=== PATIENT | female | born 1965 | race Caucasian/White ===

== ENCOUNTER → 2016-08-24 | Outpatient (CLI) | payer BC ==
[~2016-08-24] MED LIST: ACET-1256 PO; AMT25 PO; HYG/25 PO; LSN40; SUMA6KIT3 SQ
== END | disposition home or self-care (01) ==
LOC: C.LABSPEC 15:45
PROVIDERS: ATTEND Podiatrist Primary Podiatric Medicine
DX: B35.1 Tinea unguium (principal)

== ENCOUNTER 2020-12-12 16:07 | Observation (INO) ==
[2020-12-12 16:32] LABS: Basophils # (auto) 0.03 K/uL (0-0.2); Basophils % (auto) 0.5 %; Eosinophils # (auto) 0.14 K/uL (0-0.5); Eosinophils % (auto) 2.1 %; Hematocrit (blood only) 42.2 % (37-47); Hemoglobin 14.6 g/dL (12.0-16.0); Immature Granulocytes # (auto) 0.02 K/uL (0.00-0.02); Immature Granulocytes % (auto) 0.3 %; Lymphocytes % (auto) 37.8 %; Mean Corpuscular Hemoglobin 31.2 pg (25-34); Mean Corpuscular Hgb Conc 34.6 g/dL (32-36); Mean Corpuscular Volume 90.2 fL (80-100); Mean Platelet Volume 8.9 fL (7.4-10.4); Monocytes # (auto) 0.49 K/uL (0.11-0.59); Monocytes % (auto) 7.4 %; Neutrophils # (auto) 3.43 K/uL (1.4-6.5); Neutrophils % (auto) 51.9 %; Platelet Count 325 K/uL (130-400); RDW Coefficient of Variation 14.2 % (11.5-14.5); Red Blood Count 4.68 M/uL (4.2-5.4); White Blood Count 6.61 K/uL (4.8-10.8)
--- NOTE | 2020-12-12 16:39 | Emergency Department Note ---
Impression & Plan Chest pain, Palpitations, Elevated troponin I level ED Provider Note NAME: VANDANA FLORES AGE: 55 SEX: F : 1965 ARRIVES VIA: Walk-In INFORMANT: Patient, ED PROVIDER(S): Mo Godoy DO CHIEF COMPLAINT: Palpitations HPI: The patient is a 55-year-old female who presented to the emergency department for an evaluation of palpitations. The patient describes an acute onset of palpitations at approximately 1 PM today. She does have a history of migraine headache. She states she awoke with a migraine headache today. She d escribes it as her usual classic migraine headache. She did take her usual migraine medication this morning which includes Imitrex as well as a Vicodin because the headache initially did not improve. She states the headache is significantly improved but then today around 1 PM she started noticing palpitations. She states she is very short of breath and has exertional dyspnea. She denies having any swelling in the legs. She does complain of chest discomfort. She states that the symptoms are ongoing and worsens with exertion. She did not see her family doctor for the symptoms but tried to call for an appointment. She has had no nausea or vomiting. She does still have a headache at this time but states it is mild and consistent with her usual migraine. She denies having any new medications or changes in her medication regimen. The patient denies having any abdominal pain or fevers. ROS: See above HPI for pertinent positives & negatives. A total of 10 systems reviewed and were otherwise negative. PAST MEDICAL HISTORY: See Below PAST SURGICAL HISTORY: See Below FAMILY HISTORY: See Below SOCIAL HISTORY: See Below HOME MEDICATIONS: See Below ALLERGIES: See Below VITALS: See Below PHYSICAL EXAMINATION: GENERAL: The patient is awake and alert. She is somewhat anxious appearing. EYES: The conjunctivae are clear. The pupils are round and reactive. EARS, NOSE, MOUTH AND THROAT: The nose is without any evidence of any deformity. Mucous membranes are moist. Tongue is midline. NECK: The neck is nontender and supple. RESPIRATORY: Normal respiratory effort is noted there is no evidence of wheezing rhonchi or rales CARDIOVASCULAR: Tachycardic rate with regular rhythm was noted. There was no definite murmur. GASTROINTESTINAL: The abdomen is soft. Abdomen is nontender. MUSCULOSKELETAL/EXTREMITIES: There is no evidence of gross deformity full range of motion is noted in the hips and shoulders. SKIN: There is no obvious evidence of any rash. There are no petechiae, pallor or cyanosis noted. NEUROLOGIC: Patient is awake alert and oriented x3 strength is symmetric patellar reflexes are 2+ bilaterally MEDICAL DECISION MAKING: The patient is a 55-year-old female who presented to the emergency department for an evaluation of palpitations and chest discomfort. The patient started having symptoms earlier today. She did not have any acute changes on her EKG. Her initial cardiac biomarker was detectable but not positive. The patient had a 3-hour troponin as well as a 3-hour EKG. EKG changes were not noted comparing the 2 tracings. Her symptoms had not significantly worsened. She was treated with IV fluids and Ativan. On reevaluation she was feeling much better. Given the patient's elevation in troponin I [facility] have agreed to evaluate the patient in the emergency department for further management and disposition. Triage Nursing notes reviewed. Prior medical records reviewed Vital Signs: reviewed and remarkable for no significant abnormalities Differential diagnosis: Premature contractions, electrolyte abnormality, cardiac dysrhythmia, thyroid dysfunction, pulmonary embolism, infection, gastrointestinal, as well as other pathologies. ER treatment provided: See below Diagnostics interpreted by me: ECG: EKG was obtained in the emergency department. My interpretation is sinus tachycardia 112 bpm. There was no ectopy. There was no acute ST segment abnormalities noted. This was compared to a tracing from July 262015. There was an increase in the ventricular rate otherwise no significant changes were noted. A second EKG was obtained in the emergency department. My interpretation is normal sinus rhythm at 77 bpm. There is no ectopy. There was no acute ST segment abnormalities noted. This was compared to the earlier tracing. The ventricular rate has decreased otherwise no significant changes were noted. Cardiac Monitoring: An order was placed for continuous cardiac monitoring. The monitor shows a rate of 78 bpm with sinus rhythm. Laboratory studies: As stated above and show below. Imaging studies: See below Consultation(s): 1950: I discussed this case with Dr. Nelson who is [facility]. He will evaluate the patient in the emergency department. 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: No Beliefs That Will Affect Care: None Current Living Situation: Family Other Information That Helps Us Care for You: No Feels Safe at Home: Yes Safety Concerns: Feels Safe At This Time Assistive Devices: Glasses Allergies Allergies Allergy/AdvReac Type Severity Reaction Status Date / Time rimegepant [From [facility] ODT] Allergy Intermediate Swelling Verified 12/12/20 17:20 of Lip/Tongue/Throat Home Meds Home Medications Medication Instructions Recorded Confirmed amitriptyline 25 mg PO HS 03/04/19 12/12/20 chlorthalidone 12.5 mg PO QAM 03/04/19 12/12/20 lisinopril 20 mg PO BID 03/04/19 12/12/20 meloxicam 15 mg PO QAM 03/04/19 12/12/20 escitalopram oxalate 20 mg PO HS 12/12/20 12/12/20 hydrocodone-acetaminophen 1 tab PO Q6 PRN MDD 2 tabs a day 12/12/20 12/12/20 lorazepam 1 mg PO HS PRN 12/12/20 12/12/20 sumatriptan succinate 6 mg SUBCUT UD PRN 12/12/20 12/12/20 Results & Data (ED) Vital Signs Vital Signs - 24 hr 12/12/20 15:29 12/12/20 16:10 12/12/20 16:35 Temperature 36.9 C Temperature Source Skin Pulse Rate 102 H 117 H 98 H Pulse Rate from SpO2 Sensor 98 H Respiratory Rate 19 18 18 Blood Pressure 170/81 H 159/108 H 116/84 Blood Pressure Mean 110 125 94 Pulse Oximetry 95 94 Oxygen Delivery Method Room Air Sepsis Recent Fever Within 48 Hours No Sepsis New/Unexplained Change in Mental Status No Sepsis Action Taken by Nursing No Action Required 12/12/20 17:00 12/12/20 18:00 12/12/20 18:30 Temperature Temperature Source Pulse Rate 94 H 76 79 Pulse Rate from SpO2 Sensor 95 H 77 81 Respiratory Rate 15 13 15 Blood Pressure 109/78 126/95 126/88 Blood Pressure Mean 88 105 100 Pulse Oximetry 95 97 97 Oxygen Delivery Method Sepsis Recent Fever Within 48 Hours Sepsis New/Unexplained Change in Mental Status Sepsis Action Taken by Nursing 12/12/20 20:30 12/12/20 21:00 Temperature Temperature Source Pulse Rate 73 72 Pulse Rate from SpO2 Sensor 73 Respiratory Rate 16 18 Blood Pressure 136/98 121/93 Blood Pressure Mean 110 102 Pulse Oximetry 98 97 Oxygen Delivery Method Sepsis Recent Fever Within 48 Hours Sepsis New/Unexplained Change in Mental Status Sepsis Action Taken by Assisted Medications Current Medication List: was personally reviewed by me Laboratory Data Attestation: I reviewed the patient's lab results. Result diagrams: 12/12/20 16:22 12/12/20 16:22 Lab Results 12/12/20 12/12/20 12/12/20 Range/Units 16:22 16:22 16:22 WBC 6.61 (4.8-10.8) K/uL RBC 4.68 (4.2-5.4) M/uL Hgb 14.6 (12.0-16.0) g/dL Hct 42.2 (37-47) % MCV 90.2 (80-100) fL MCH 31.2 (25-34) pg MCHC 34.6 (32-36) g/dL RDW Std Deviation 47.0 H (36.4-46.3) fL RDW Coeff of Lolis 14.2 (11.5-14.5) % Plt Count 325 (130-400) K/uL MPV 8.9 (7.4-10.4) fL Immature Gran % (Auto) 0.3 % Neut % (Auto) 51.9 % Lymph % (Auto) 37.8 % [place] % (Auto) 7.4 % Eos % (Auto) 2.1 % Baso % (Auto) 0.5 % Neut # (Auto) 3.43 (1.4-6.5) K/uL Lymph # (Auto) 2.50 (1.2-3.4) K/uL [place] # (Auto) 0.49 (0.11-0.59) K/uL Eos # (Auto) 0.14 (0-0.5) K/uL Baso # (Auto) 0.03 (0-0.2) K/uL Immature Gran # (Auto) 0.02 (0.00-0.02) K/uL D-Dimer 410 (0-500) ug/L FEU Sodium 137 (136-145) mmol/L Potassium 3.6 (3.5-5.1) mmol/L Chloride 103 (98-107) mmol/L Carbon Dioxide 28 (21-32) mmol/L Anion Gap 6.0 (3-11) BUN 17 (7-18) mg/dl Creatinine 0.64 (0.6-1.2) mg/dl Est Cr Clr Drug Dosing 113.9 ml/min Est GFR ( Amer) 114.8 ml/min Est GFR (Non-Af Amer) 99.1 ml/min BUN/Creatinine Ratio 26.2 H (10-20) Glucose 95 (70-99) mg/dl Calcium 9.6 (8.5-10.1) mg/dl Magnesium 2.1 (1.8-2.4) mg/dl Total Bilirubin 0.4 (0.2-1) mg/dl AST 29 (15-37) U/L ALT 49 (12-78) U/L Alkaline Phosphatase 62 (45-117) U/L Troponin I 0.021 (0-0.045) ng/ml Total Protein 7.9 (6.4-8.2) gm/dl Albumin 4.4 (3.4-5.0) gm/dl Globulin 3.5 (2.5-4.0) gm/dl Albumin/Globulin Ratio 1.3 (0.9-2) TSH 10.100 H (0.300-4.500) uIu/ml Free T4 0.77 L (0.8-1.6) ng/dl COVID-19 Eval Order SARS-CoV-2 (PCR) (Negative) 12/12/20 12/12/20 12/12/20 Range/Units 18:53 20:13 20:13 WBC (4.8-10.8) K/uL RBC (4.2-5.4) M/uL Hgb (12.0-16.0) g/dL Hct (37-47) % MCV (80-100) fL MCH (25-34) pg MCHC (32-36) g/dL RDW Std Deviation (36.4-46.3) fL RDW Coeff of Lolis (11.5-14.5) % Plt Count (130-400) K/uL MPV (7.4-10.4) fL Immature Gran % (Auto) % Neut % (Auto) % Lymph % (Auto) % [place] % (Auto) % Eos % (Auto) % Baso % (Auto) % Neut # (Auto) (1.4-6.5) K/uL Lymph # (Auto) (1.2-3.4) K/uL [place] # (Auto) (0.11-0.59) K/uL Eos # (Auto) (0-0.5) K/uL Baso # (Auto) (0-0.2) K/uL Immature Gran # (Auto) (0.00-0.02) K/uL D-Dimer (0-500) ug/L FEU Sodium (136-145) mmol/L Potassium (3.5-5.1) mmol/L Chloride (98-107) mmol/L Carbon Dioxide (21-32) mmol/L Anion Gap (3-11) BUN (7-18) mg/dl Creatinine (0.6-1.2) mg/dl Est Cr Clr Drug Dosing ml/min Est GFR ( Amer) ml/min Est GFR (Non-Af Amer) ml/min BUN/Creatinine Ratio (10-20) Glucose (70-99) mg/dl Calcium (8.5-10.1) mg/dl Magnesium (1.8-2.4) mg/dl Total Bilirubin (0.2-1) mg/dl AST (15-37) U/L ALT (12-78) U/L Alkaline Phosphatase (45-117) U/L Troponin I 0.098 H* (0-0.045) ng/ml Total Protein (6.4-8.2) gm/dl Albumin (3.4-5.0) gm/dl Globulin (2.5-4.0) gm/dl Albumin/Globulin Ratio (0.9-2) TSH (0.300-4.500) uIu/ml Free T4 (0.8-1.6) ng/dl COVID-19 Eval Order Covid[address] [facility] SARS-CoV-2 (PCR) NEGATIVE (Negative) Administered Medications Discontinued Medications Aspirin (Aspirin Chew 324 Mg) 324 mg PO NOW STA Stop: 12/12/20 19:43 Last Admin: 12/12/20 20:10 Dose: 324 mg Documented by: [id number] Sodium Chloride (Nss 1000ml) 1,000 mls @ 999 mls/hr IV .Q1H1M ONE Stop: 12/12/20 17:54 Last Infusion: 12/12/20 18:23 Dose: 0 mls/hr Documented by: [id number] Admin: 12/12/20 17:15 Dose: 999 mls/hr Documented by: [id number] Lorazepam (Lorazepam 1 Mg Tab) 1 mg PO NOW STA Stop: 12/12/20 19:43 Last Admin: 12/12/20 20:10 Dose: 1 mg Documented by: [id number] Imaging Data Radiologist's Impression: Chest X-Ray 12/12/20 16:16 XR chest 1V portable CLINICAL HISTORY: Dysrhythmia COMPARISON STUDY: July 26, 2015 FINDINGS: No pneumothorax. No pleural effusion. No large infiltrates or consolidative lesions are seen. Cardiomediastinal silhouette is within normal limits in size. No significant pulmonary vascular congestion.. Osseous structures: Degenerative changes of the spine. IMPRESSION: 1. No acute pulmonary process. ACT 112: Negative or not required by law. The above report was generated using voice recognition software. It may contain grammatical, syntax or spelling errors. Electronically signed by: Katarina Reyna DO 12/12/2020 4:39 PM Discharge Plan Visit Data Chief Complaint: Tachycardia Stated Complaint: RACING HEART, SWEATING, ARM FEEL WEEK ED Provider: Mo Godoy Discharge Problem: Chest pain, Palpitations, Elevated troponin I level Patient Disposition: Admitted As Inpatient Condition: Good Discharge Instructions Interventions: ED Discharge Assessment Last Done: 12/12/20 22:18 Discharge Problem: Chest pain Qualifiers: Chest pain type: unspecified Qualified Code(s): R07.9 - Chest pain, unspecified
[2020-12-12 16:41] LABS: D Dimer 410 ug/L FEU (0-500)
[2020-12-12 16:50] LABS: Albumin Level 4.4 gm/dl (3.4-5.0); BUN Creatinine Ratio 26.2 (10-20); Calcium 9.6 mg/dl (8.5-10.1); Creatinine Clr Calc Pharmacy 113.9 ml/min; Est GFR (African American) 114.8 ml/min; Est GFR (Non-African American) 99.1 ml/min; Magnesium 2.1 mg/dl (1.8-2.4); Potassium 3.6 mmol/L (3.5-5.1)
[2020-12-12] MEDS ORDERED: SODIUM CHLORIDE 0.9% 1000ML 1,000 ML IV ONE (16:54)
[2020-12-12 17:00] LABS: Albumin Globulin Ratio 1.3 (0.9-2); Bilirubin,Total 0.4 mg/dl (0.2-1); Globulin 3.5 gm/dl (2.5-4.0); Thyroid Stimulating Hormone 10.1 uIu/ml (0.300-4.500); Total Protein 7.9 gm/dl (6.4-8.2); Troponin I 0.021 ng/ml (0-0.045)
[2020-12-12 17:13] LABS: T4 Free Thyroxine 0.77 ng/dl (0.8-1.6)
[2020-12-12] MEDS ORDERED: LORazepam 1 MG TAB PO STA (19:42)
[2020-12-12] MEDS ORDERED: ASPIRIN CHEW 324 MG PO STA (19:42)
[2020-12-12] MEDS ORDERED: NITROGLYCERIN SL 0.4 MG/TAB TAB SL PRN (22:46)
[2020-12-12] MEDS ORDERED: ACETAMINOPHEN 325 MG TAB PO PRN (22:46)
[2020-12-12] MEDS ORDERED: ONDANSETRON INJ 2 MG/ML 2 ML VIAL IV PRN (22:46)
[2020-12-12] MEDS ORDERED: HYDROCODONE/ACETAMINOPHEN 7.5/325MG TAB PO PRN (22:58)
[2020-12-12] MEDS ORDERED: SUMAtriptan succinate 6 MG/0.5 ML VIAL SQ PRN (22:59)
[2020-12-12] MEDS ORDERED: LORazepam 1 MG TAB PO PRN (23:00)
--- NOTE | 2020-12-13 00:29 | History and Physical Report ---
DATE OF ADMISSION: 12/12/2020. CHIEF COMPLAINT: Palpitations, chest pain. HISTORY OF PRESENT ILLNESS: A 55-year-old female with past medical history significant for hypertension, vascular malformation, palpitation, migraine, cervicalgia, chronic daily headaches, generalized anxiety disorder, major depression, who presents with palpitations and chest discomfort. The patient states she was in the grocery store and when coming back to the car, she had a lot of palpitations. She went home and she laid lay down when she had chest discomfort in the left side of the chest, weird feeling, and also profuse sweating. When she again tried to walk, she again had the palpitations and she has some weird feeling in the chest and she had some mild shortness of breath, which prompted her to come to the ER. She had this similar episode in the past, in 2014. She had workup with a stress test that was negative and Holter was also unremarkable. She was told that she may have panic attacks .She says she gets this weird feeling in the chest on and off. Otherwise, she is active. She can walk and climb stairs okay until this episode happened. Currently, resting comfortably and hemodynamically stable. She has daily headaches. She did have a migraine attack in the morning. Currently, the headache is better. Denies any blurred visions, no earache, no runny nose, no sore throat, no cough, no fevers, no nausea, no abdominal pain. Normal bowel and bladder movements. No hematuria, no burning micturition. No blood in stools or black stools. Sleeps okay. Denies any swelling in the legs. Currently, resting comfortably and hemodynamically stable. Had COVID shot. ALLERGIES: RIMEGEPANT. PAST MEDICAL HISTORY: As mentioned above. PAST SURGICAL HISTORY: C/T spine paravertebral injection; lumbosacral injection; injection of lumbar, cervical, and thoracic spine; revision of the foot bones and tendons. MEDICATIONS: The patient is on amitriptyline 25 mg p.o. at bedtime, chlorthalidone 12.5 mg p.o. q.a.m., Lexapro 20 mg p.o. at bedtime, hydrocodone/acetaminophen 1 tab p.o. q. 6 hours p.r.n., lisinopril 20 mg p.o. b.i.d., Ativan 1 mg p.o. at bedtime p.r.n., meloxicam 15 mg p.o. q.a.m., sumatriptan 6 mg subcutaneous p.r.n. FAMILY HISTORY: Significant for mother has brain aneurysm. SOCIAL HISTORY: , former smoker, quit 15 plus years ago. Alcohol, rarely. No drug use. REVIEW OF SYSTEMS: As per HPI. Rest of the review of systems is negative. PHYSICAL EXAMINATION: GENERAL: The patient is of moderate build, not in acute distress. VITAL SIGNS: Temperature 36.9, pulse 73, respiratory rate 16, blood pressure 136/98, oxygen 98% on room air. HEENT: Head is atraumatic. Pupils equal, round and reactive to light. Oral mucosa moist. NECK: No JVD, no neck masses. CARDIOVASCULAR: S1 and S2 heard. Regular rate and rhythm with no murmur, no gallop. RESPIRATORY SYSTEM: Normal AP diameter. No accessory muscle use. no wheezing, no crackles. ABDOMEN: Soft, bowel sounds present, nontender, no distention. CENTRAL NERVOUS SYSTEM: Cranial nerves II-XII grossly intact, nonfocal. EXTREMITIES: Trace pedal edema, no erythema seen. LABORATORY DATA: WBC 6.6, hemoglobin 14.6, hematocrit 42.2, platelets 325. D- dimer 410. Sodium 137, potassium 3.6, chloride 103, bicarbonate 28, BUN 17, creatinine 0.6, serum glucose 95, calcium 9.6, magnesium 2.1, total bilirubin 0.4, AST 29, ALT 49, alkaline phosphatase 69. Troponin 1 of 0.09. TSH 10.1, free T4 of 0.77. SARS-CoV-2 PCR negative. IMAGING DATA: Chest x-ray, no acute pulmonary process. EKG: Normal sinus rhythm, rate of 77, no significant change was found. ASSESSMENT AND PLAN: This is a 55-year-old female, who presents with palpitation and shortness of breath on exertion and chest discomfort. 1. Palpitations, shortness of breath on exertion, and chest discomfort: She had similar symptoms in the past. Workup was negative at that time, but currently she has mild elevation of troponin. When she came in, she was tachycardic, currently stable. but will rule CAD with serial enzymes, echo. N.p.o. after midnight and consult cardiology in the a.m. If the next troponin starts to climbs up, will start on IV heparin. The patient received aspirin in the ER. Currently, seems to be asymptomatic., will closely monitor. 2. History of hypertension: Continue chlorthalidone and lisinopril. Will monitor the blood pressure. 3. Generalized anxiety disorder and depression: Continue her Ativan p.r.n., Lexapro, and amitriptyline. 4. Chronic headaches, migraines: Continue her home medications. 5. Chronic pain: Continue home pain medications. 6. Abnormal thyroid function tests: Will repeat the labs in the a.m. If they are still the same, may need to replace with Synthroid and follow up with PCP. 7. Deep venous thrombosis: Will place on sequential compression devices. DISPOSITION: Closely monitor in the tele floor. Level 1 full code. Expect to discharge home and follow up with family doctor. Job ID: [id number] [email or web address]
[2020-12-13 05:53] LABS: Basophils # (auto) 0.03 K/uL (0-0.2); Basophils % (auto) 0.6 %; Eosinophils # (auto) 0.17 K/uL (0-0.5); Eosinophils % (auto) 3.6 %; Hematocrit (blood only) 35.4 % (37-47); Hemoglobin 12.1 g/dL (12.0-16.0); Immature Granulocytes # (auto) 0.01 K/uL (0.00-0.02); Immature Granulocytes % (auto) 0.2 %; Lymphocytes # (auto) 1.73 K/uL (1.2-3.4); Lymphocytes % (auto) 36.7 %; Mean Corpuscular Hemoglobin 30.3 pg (25-34); Mean Corpuscular Hgb Conc 34.2 g/dL (32-36); Mean Corpuscular Volume 88.7 fL (80-100); Mean Platelet Volume 8.6 fL (7.4-10.4); Monocytes # (auto) 0.35 K/uL (0.11-0.59); Monocytes % (auto) 7.4 %; Neutrophils # (auto) 2.42 K/uL (1.4-6.5); Neutrophils % (auto) 51.5 %; Platelet Count 263 K/uL (130-400); RDW Coefficient of Variation 14.4 % (11.5-14.5); RDW Standard Deviation 46.9 fL (36.4-46.3); Red Blood Count 3.99 M/uL (4.2-5.4); White Blood Count 4.71 K/uL (4.8-10.8)
[2020-12-13 06:18] LABS: BUN Creatinine Ratio 25.1 (10-20); Calcium 9.1 mg/dl (8.5-10.1); Creatinine Clr Calc Pharmacy 148.6 ml/min; Est GFR (African American) 125.3 ml/min; Est GFR (Non-African American) 108.2 ml/min; Magnesium 2.3 mg/dl (1.8-2.4); Potassium 3.8 mmol/L (3.5-5.1)
[2020-12-13 06:29] LABS: Thyroid Stimulating Hormone 6.51 uIu/ml (0.300-4.500); Troponin I 0.025 ng/ml (0-0.045)
[2020-12-13] MEDS ORDERED: lisinopril 20 MG TAB PO SCH (09:00)
[2020-12-13] MEDS ORDERED: CHLORTHALIDONE 25 MG TAB PO SCH (09:00)
[2020-12-13] MEDS ORDERED: ASPIRIN 81 MG ECTAB PO SCH (09:00)
--- NOTE | 2020-12-13 10:20 | Cardiology Consultation ---
Date of Consultation December 13, 2020 Assessment & Plan (1) Chest pain: (2) Palpitations: (3) Elevated troponin I level: I believe that her minor elevation in cardiac troponins is not due to acute coronary syndrome. I believe we can proceed with exercise stress testing. The patient is confident that she can exercise on a treadmill which she did in 2014. She will have a baseline echocardiogram before proceeding with an exercise stress echocardiogram. If there are any wall motion abnormalities then we will certainly change our approach to an invasive study. She may be experiencing PSVT and if her stress test is negative then she can have a monitor for 1 to 2 weeks as an outpatient. History of Present Illness Attending Physician: Samira Brsyon MD History of Present Illness This is a 55-year-old female who has a history of panic attacks. She was seen in our practice in 2014. At that time she states that she was having a lot of difficulty with her anxiety and panic attacks. She was having atypical chest pain and heart palpitations. She saw Dr. De Souza and a stress test the monitor was completed with negative results. She was then lost to follow-up. Yesterday she was at her local box store and developed heart palpitations and tachycardia similar what she had previously. She went to her car and drove home. Her symptoms abated and then returned. She laid down to rest. They returned a third time and she came into the emergency department. On admission her EKG is normal without acute changes. Her TSH level is elevated with a normal T4. She had a slight elevation in her cardiac troponins which I believe are not related to acute coronary syndrome but may be due to the tachycardia or stress. She has been pain-free since admission. Her risk factors are minimal. She does not smoke or have a history of diabetes or hypercholesterolemia. She is treated for mild essential hypertension. She does relate a history however, of severe leg and arm pains which she states is related to cervical radiculopathy which is creating more anxiety. She became emotional during my visit today. Allergies Allergy/AdvReac Type Severity Reaction Status Date / Time rimegepant [From [facility] ODT] Allergy Intermediate Swelling Verified 12/12/20 17:20 of Lip/Tongue/Throat Home Medications Medication Instructions Recorded Confirmed Type amitriptyline 25 mg PO HS 03/04/19 12/12/20 History chlorthalidone 12.5 mg PO QAM 03/04/19 12/12/20 History lisinopril 20 mg PO BID 03/04/19 12/12/20 History meloxicam 15 mg PO QAM 03/04/19 12/12/20 History escitalopram oxalate 20 mg PO HS 12/12/20 12/12/20 History hydrocodone-acetaminophen 1 tab PO Q6 PRN MDD 2 tabs a day 12/12/20 12/12/20 History lorazepam 1 mg PO HS PRN 12/12/20 12/12/20 History sumatriptan succinate 6 mg SUBCUT UD PRN 12/12/20 12/12/20 History Patient History Medical History HTN (hypertension) Migraine Family History Other Family history non-contributory Social History Smoking Status: Unknown if ever smoked Hx Alcohol Use: No Hx Substance Use: No Preferred Language: [place] Communication Ability: Effective Neurology Manager Required: No Beliefs That Will Affect Care: None Current Living Situation: Family Other Information That Helps Us Care for You: No Feels Safe at Home: Yes Safety Concerns: Feels Safe At This Time Assistive Devices: Glasses Review of Systems Review of Systems: All systems reviewed & are unremarkable except as noted in HPI & below Nothing additional to add. The patient has had a previous exercise stress test in the past and feels confident that she can complete 1 today despite her leg discomfort. Physical Exam Physical Exam: General: no acute distress and stated age Head: normocephalic, no masses, lesions, tenderness or abnormalities Eyes: conjunctiva are pink and non-injected, sclera clear Neck: supple, no adenopathy, no bruits, normal jugular venous pulse, no hepatojugular reflux Chest: normal shape and normal respiratory effort Lungs: clear to auscultation and percussion Cardiac Exam: - regular rate & rhythm, no murmurs gallops or rubs - normal S1, normal S2 Pulses: 2(+) throughout Abdomen: abdomen soft, non-tender, no abnormal masses and no hepatosplenomegaly Musculoskeletal: no gait disturbance, no joint inflammation, no deforming arthri tis Extremities: no edema and no cyanosis Neuro: grossly normal exam Results & Data ([facility]) Vital Signs (Past 12 Hours) Vital Signs Temp Pulse Resp BP Pulse Ox 12/13/20 07:12 37.0 C 72 19 113/85 97 12/13/20 04:02 36.5 C 78 20 138/81 97 12/12/20 22:23 36.8 C 73 18 140/98 98 Laboratory Results Laboratory Results - last 24 hr 12/12/20 12/12/20 12/12/20 16:22 16:22 16:22 WBC 6.61 RBC 4.68 Hgb 14.6 Hct 42.2 MCV 90.2 MCH 31.2 MCHC 34.6 RDW Std Deviation 47.0 H RDW Coeff of Lolis 14.2 Plt Count 325 MPV 8.9 Immature Gran % (Auto) 0.3 Neut % (Auto) 51.9 Lymph % (Auto) 37.8 Buchanan % (Auto) 7.4 Eos % (Auto) 2.1 Baso % (Auto) 0.5 Neut # (Auto) 3.43 Lymph # (Auto) 2.50 Buchanan # (Auto) 0.49 Eos # (Auto) 0.14 Baso # (Auto) 0.03 Immature Gran # (Auto) 0.02 D-Dimer 410 Sodium 137 Potassium 3.6 Chloride 103 Carbon Dioxide 28 Anion Gap 6.0 BUN 17 Creatinine 0.64 Est Cr Clr Drug Dosing 113.9 Est GFR ( Amer) 114.8 Est GFR (Non-Af Amer) 99.1 BUN/Creatinine Ratio 26.2 H Glucose 95 Calcium 9.6 Magnesium 2.1 Total Bilirubin 0.4 AST 29 ALT 49 Alkaline Phosphatase 62 Troponin I 0.021 Total Protein 7.9 Albumin 4.4 Globulin 3.5 Albumin/Globulin Ratio 1.3 TSH 10.100 H Free T4 0.77 L COVID-19 Eval Order SARS-CoV-2 (PCR) 12/12/20 12/12/20 12/12/20 18:53 20:13 20:13 WBC RBC Hgb Hct MCV MCH MCHC RDW Std Deviation RDW Coeff of Lolis Plt Count MPV Immature Gran % (Auto) Neut % (Auto) Lymph % (Auto) Buchanan % (Auto) Eos % (Auto) Baso % (Auto) Neut # (Auto) Lymph # (Auto) Buchanan # (Auto) Eos # (Auto) Baso # (Auto) Immature Gran # (Auto) D-Dimer Sodium Potassium Chloride Carbon Dioxide Anion Gap BUN Creatinine Est Cr Clr Drug Dosing Est GFR ( Amer) Est GFR (Non-Af Amer) BUN/Creatinine Ratio Glucose Calcium Magnesium Total Bilirubin AST ALT Alkaline Phosphatase Troponin I 0.098 H* Total Protein Albumin Globulin Albumin/Globulin Ratio TSH Free T4 COVID-19 Eval Order Covid19 at [facility] SARS-CoV-2 (PCR) NEGATIVE 12/12/20 12/13/20 12/13/20 23:06 05:39 05:39 WBC 4.71 L RBC 3.99 L Hgb 12.1 Hct 35.4 L MCV 88.7 MCH 30.3 MCHC 34.2 RDW Std Deviation 46.9 H RDW Coeff of Lolis 14.4 Plt Count 263 MPV 8.6 Immature Gran % (Auto) 0.2 Neut % (Auto) 51.5 Lymph % (Auto) 36.7 Buchanan % (Auto) 7.4 Eos % (Auto) 3.6 Baso % (Auto) 0.6 Neut # (Auto) 2.42 Lymph # (Auto) 1.73 Buchanan # (Auto) 0.35 Eos # (Auto) 0.17 Baso # (Auto) 0.03 Immature Gran # (Auto) 0.01 D-Dimer Sodium 141 Potassium 3.8 Chloride 108 H Carbon Dioxide 31 Anion Gap 2.0 L BUN 12 Creatinine 0.49 L Est Cr Clr Drug Dosing 148.6 Est GFR ( Amer) 125.3 Est GFR (Non-Af Amer) 108.2 BUN/Creatinine Ratio 25.1 H Glucose 92 Calcium 9.1 Magnesium 2.3 Total Bilirubin AST ALT Alkaline Phosphatase Troponin I 0.058 H* 0.025 Total Protein Albumin Globulin Albumin/Globulin Ratio TSH 6.510 H Free T4 COVID-19 Eval Order SARS-CoV-2 (PCR) Diagnostic Findings EKG shows a sinus rhythm without evidence of acute coronary syndrome. Medications Administered Current Inpatient Medications Acetaminophen (Acetaminophen 325 Mg Tab) 650 mg PO Q4H PRN PRN Reason: Pain or Fever Stop: 01/11/21 22:45 Hydrocodone Bitart/Acetaminophen (Hydrocodone/Acetaminophen 7.5/325mg Tab) 1 tab PO Q6H PRN PRN Reason: mild pain/headache Stop: 12/26/20 22:57 Amitriptyline HCl (Amitriptyline Hcl 25 Mg Tab) 25 mg PO HS JANNY Stop: 01/12/21 20:59 Aspirin (Aspirin 81 Mg Ectab) 81 mg PO QAM JANNY Stop: 01/12/21 08:59 Last Admin: 12/13/20 10:12 Dose: 81 mg Documented by: Chlorthalidone (Chlorthalidone 25 Mg Tab) 12.5 mg PO QAM JANNY Stop: 01/12/21 08:59 Last Admin: 12/13/20 10:12 Dose: 12.5 mg Documented by: Escitalopram Oxalate (Escitalopram Oxalate 20 Mg Tab) 20 mg PO HS JANNY Stop: 01/12/21 20:59 Lisinopril (Lisinopril 20 Mg Tab) 20 mg PO BID JANNY Stop: 01/12/21 08:59 Last Admin: 12/13/20 10:12 Dose: 20 mg Documented by: Lorazepam (Lorazepam 1 Mg Tab) 1 mg PO HS PRN PRN Reason: Sleep Stop: 01/11/21 22:59 Nitroglycerin (Nitroglycerin Sl 0.4 Mg/Tab Tab) 0.4 mg SL UD PRN PRN Reason: Chest Pain Stop: 01/11/21 22:45 Ondansetron HCl (Ondansetron Inj 2 Mg/Ml 2 Ml Vial) 4 mg IV Q6H PRN PRN Reason: Nausea Stop: 01/11/21 22:45 Sumatriptan Succinate (Sumatriptan Succinate 6 Mg/0.5 Ml Vial) 6 mg SQ UD PRN PRN Reason: Migraine Headache Stop: 01/11/21 22:58 (1) Chest pain Chest pain type: unspecified Qualified Code(s): R07.9 - Chest pain, unspecified
--- NOTE | 2020-12-13 13:20 | Hospitalist Progress Note ---
Date of Service December 13, 2020 Assessment & Plan (1) Chest pain: Admitted with chest pain/pressure associated with palpitation Initial troponin was slightly elevated but serial troponins did not show any increasing of troponin EKG remained unremarkable Appreciate cardiology input and recommendation Has had a stress test in the past without any significant findings Will have stress echo this morning and if negative, she will be discharged home (2) Palpitations: As above No tachycardia in the hospital after admission (3) HTN (hypertension): Remains controlled (4) Migraine: No acute headache (5) Generalized anxiety disorder: History of generalized anxiety disorder Has been occasional benzodiazepines Admission and Anticipated Discharge Date Admission Date: December 12, 2020 Subjective 12/13/2020 The patient was seen and examined in telemetry unit She is very anxious and was admitted with palpitation and chest pain Remains very anxious and worried about the stress test that she is going to have Denies any other significant symptoms Review of Systems Review of Systems: All systems reviewed and are unremarkable except as noted below Cardiovascular: + palpitations; no chest pain Psychiatric: + anxiety Physical Exam Physical Exam: Sitting on a chair with acute anxiety Constitutional: well developed, well nourished and + obese; + uncomfortable Eyes: PERRL, conjunctivae normal, anicteric sclerae ENMT: external ear and nose normal, oropharynx normal Neck: trachea midline, no thyromegaly Respiratory: no respiratory distress Auscultation: lungs clear to auscultation bilaterally Cardiovascular: Rate/Rhythm: regular rate and regular rhythm Heart Sounds: no murmur Extremities: no edema Gastrointestinal (Abdomen): Inspection/Auscultation: normal bowel sounds; abdomen not distended Percussion/Palpation: abdomen soft; abdomen nontender Musculoskeletal: No acute arthritis in any joint Neurologic: Alert, awake and oriented x3. No focal sensory and motor deficit appreciated Psychiatric: Affect: + anxious affect Lymphatic: no cervical or axillary lymphadenopathy Results & Data Results & Data ([facility]) Vital Signs (Past 12 Hours) Vital Signs Temp Pulse Pulse Resp BP Pulse Ox 12/13/20 11:10 36.8 C 76 19 131/90 97 12/13/20 09:00 73 12/13/20 07:12 37.0 C 72 19 113/85 97 12/13/20 04:02 36.5 C 78 20 138/81 97 Laboratory Results Short CBC 12/12/20 12/13/20 Range/Units 16:22 05:39 WBC 6.61 4.71 L (4.8-10.8) K/uL Hgb 14.6 12.1 (12.0-16.0) g/dL Hct 42.2 35.4 L (37-47) % Plt Count 325 263 (130-400) K/uL BMP 12/12/20 12/13/20 16:22 05:39 Sodium 137 141 Potassium 3.6 3.8 Chloride 103 108 H Carbon Dioxide 28 31 BUN 17 12 Creatinine 0.64 0.49 L Glucose 95 92 Calcium 9.6 9.1 Cardiac Enzymes 12/12/20 12/12/20 12/12/20 Range/Units 16:22 18:53 23:06 Troponin I 0.021 0.098 H* 0.058 H* (0-0.045) ng/ml 12/13/20 12/13/20 Range/Units 05:39 11:03 Troponin I 0.025 < 0.015 (0-0.045) ng/ml Liver Function 12/12/20 Range/Units 16:22 Total Bilirubin 0.4 (0.2-1) mg/dl AST 29 (15-37) U/L ALT 49 (12-78) U/L Alkaline Phosphatase 62 (45-117) U/L Albumin 4.4 (3.4-5.0) gm/dl Medications Administered Current Inpatient Medications Acetaminophen (Acetaminophen 325 Mg Tab) 650 mg PO Q4H PRN PRN Reason: Pain or Fever Stop: 01/11/21 22:45 Hydrocodone Bitart/Acetaminophen (Hydrocodone/Acetaminophen 7.5/325mg Tab) 1 tab PO Q6H PRN PRN Reason: mild pain/headache Stop: 12/26/20 22:57 Amitriptyline HCl (Amitriptyline Hcl 25 Mg Tab) 25 mg PO HS JANNY Stop: 01/12/21 20:59 Aspirin (Aspirin 81 Mg Ectab) 81 mg PO QAM JANNY Stop: 01/12/21 08:59 Last Admin: 12/13/20 10:12 Dose: 81 mg Documented by: Chlorthalidone (Chlorthalidone 25 Mg Tab) 12.5 mg PO QAM JANNY Stop: 01/12/21 08:59 Last Admin: 12/13/20 10:12 Dose: 12.5 mg Documented by: Escitalopram Oxalate (Escitalopram Oxalate 20 Mg Tab) 20 mg PO HS JANNY Stop: 01/12/21 20:59 Lisinopril (Lisinopril 20 Mg Tab) 20 mg PO BID JANNY Stop: 01/12/21 08:59 Last Admin: 12/13/20 10:12 Dose: 20 mg Documented by: Lorazepam (Lorazepam 1 Mg Tab) 1 mg PO HS PRN PRN Reason: Sleep Stop: 01/11/21 22:59 Nitroglycerin (Nitroglycerin Sl 0.4 Mg/Tab Tab) 0.4 mg SL UD PRN PRN Reason: Chest Pain Stop: 01/11/21 22:45 Ondansetron HCl (Ondansetron Inj 2 Mg/Ml 2 Ml Vial) 4 mg IV Q6H PRN PRN Reason: Nausea Stop: 01/11/21 22:45 Sumatriptan Succinate (Sumatriptan Succinate 6 Mg/0.5 Ml Vial) 6 mg SQ UD PRN PRN Reason: Migraine Headache Stop: 01/11/21 22:58 (1) HTN (hypertension) Hypertension type: unspecified Qualified Code(s): I10 - Essential (primary) hypertension
[2020-12-13] MEDS ORDERED: ESCITALOPRAM OXALATE 20 MG TAB PO SCH (21:00)
[2020-12-13] MEDS ORDERED: AMITRIPTYLINE HCL 25 MG TAB PO SCH (21:00)
--- NOTE | 2020-12-14 06:02 | Electrocardiogram Report ---
Test Reason : Blood Pressure : / mmHG Vent. Rate : 112 BPM Atrial Rate : 112 BPM P-R Int : 142 ms QRS Dur : 086 ms QT Int : 346 ms P-R-T Axes : 065 027 053 degrees QTc Int : 472 ms Sinus tachycardia Possible Left atrial enlargement Borderline ECG When compared with ECG of 26-JUL-2015 14:43, Vent. rate has increased BY 38 BPM Confirmed by Srinivas Baryr ([id number]) on 12/14/2020 6:02:08 AM Referred By: REFERRED SELF Confirmed By:Srinivas Barry
--- NOTE | 2020-12-14 06:09 | Electrocardiogram Report ---
Test Reason : Blood Pressure : / mmHG Vent. Rate : 077 BPM Atrial Rate : 077 BPM P-R Int : 142 ms QRS Dur : 090 ms QT Int : 418 ms P-R-T Axes : 071 017 046 degrees QTc Int : 473 ms Normal sinus rhythm Possible Left atrial enlargement Borderline ECG When compared with ECG of 12-DEC-2020 16:18, No significant change was found Confirmed by Srinivas Barry ([id number]) on 12/14/2020 6:09:15 AM Referred By: REFERRED SELF Confirmed By:Srinivas Barry
--- NOTE | 2020-12-14 06:26 | Electrocardiogram Report ---
Test Reason : Blood Pressure : / mmHG Vent. Rate : 071 BPM Atrial Rate : 071 BPM P-R Int : 144 ms QRS Dur : 088 ms QT Int : 444 ms P-R-T Axes : 066 025 063 degrees QTc Int : 482 ms Normal sinus rhythm Prolonged QT Abnormal ECG When compared with ECG of 12-DEC-2020 18:49, No significant change was found Confirmed by Srinivas Barry ([id number]) on 12/14/2020 6:26:12 AM Referred By: REFERRED SELF Confirmed By:Srinivas Barry
--- NOTE | 2020-12-14 08:43 | Discharge Summary ---
Date of Service December 14, 2020 Admission HPI Per Admitting Provider DICTATED BY: Juanjose Nelson MD DATE OF ADMISSION: 12/12/2020. CHIEF COMPLAINT: Palpitations, chest pain. HISTORY OF PRESENT ILLNESS: A 55-year-old female with past medical history significant for hypertension, vascular malformation, palpitation, migraine, cervicalgia, chronic daily headaches, generalized anxiety disorder, major depression, who presents with palpitations and chest discomfort. The patient states she was in the grocery store and when coming back to the car, she had a lot of palpitations. She went home and she laid lay down when she had chest discomfort in the left side of the chest, weird feeling, and also profuse sweating. When she again tried to walk, she again had the palpitations and she has some weird feeling in the chest and she had some mild shortness of breath, which prompted her to come to the ER. She had this similar episode in the past, in 2014. She had workup with a stress test that was negative and Holter was also unremarkable. She was told that she may have panic attacks .She says she gets this weird feeling in the chest on and off. Otherwise, she is active. She can walk and climb stairs okay until this episode happened. Currently, resting comfortably and hemodynamically stable. She has daily headaches. She did have a migraine attack in the morning. Currently, the headache is better. Denies any blurred visions, no earache, no runny nose, no sore throat, no cough, no fevers, no nausea, no abdominal pain. Normal bowel and bladder movements. No hematuria, no burning micturition. No blood in stools or black stools. Sleeps okay. Denies any swelling in the legs. Currently, resting comfortably and hemodynamically stable. Had COVID shot. Admission Exam Per Admitting Provider GENERAL: The patient is of moderate build, not in acute distress. VITAL SIGNS: Temperature 36.9, pulse 73, respiratory rate 16, blood pressure 136/98, oxygen 98% on room air. HEENT: Head is atraumatic. Pupils equal, round and reactive to light. Oral mucosa moist. NECK: No JVD, no neck masses. CARDIOVASCULAR: S1 and S2 heard. Regular rate and rhythm with no murmur, no gallop. RESPIRATORY SYSTEM: Normal AP diameter. No accessory muscle use. no wheezing, no crackles. ABDOMEN: Soft, bowel sounds present, nontender, no distention. CENTRAL NERVOUS SYSTEM: Cranial nerves II-XII grossly intact, nonfocal. EXTREMITIES: Trace pedal edema, no erythema seen. Principal Diagnosis Chest pain-no ACS and negative stress echo, anxiety disorder Discharge Exam Constitutional well developed, well nourished and + obese; + uncomfortable Eyes PERRL, conjunctivae normal, anicteric sclerae ENMT external ear and nose normal, oropharynx normal Neck trachea midline, no thyromegaly Respiratory no respiratory distress Auscultation: lungs clear to auscultation bilaterally Cardiovascular Rate/Rhythm: regular rate and regular rhythm Heart Sounds: no murmur Extremities: no edema Gastrointestinal (Abdomen) Inspection/Auscultation: normal bowel sounds; abdomen not distended Percussion/Palpation: abdomen soft; abdomen nontender Psychiatric Affect: + anxious affect Lymphatic no cervical or axillary lymphadenopathy Discharge Data Allergies Allergy/AdvReac Type Severity Reaction Status Date / Time rimegepant [From [facility] ODT] Allergy Intermediate Swelling Verified 12/12/20 17:20 of Lip/Tongue/Throat Consultations 12/12/20 19:50 ED Decision to Admit Stat 12/13/20 08:00 Consult Cardiology Routine Hospital Course (1) Chest pain: Admitted with chest pain/pressure associated with palpitation Initial troponin was slightly elevated but serial troponins did not show any increasing of troponin EKG remained unremarkable Appreciate cardiology input and recommendation Has had a stress test in the past without any significant findings Will have stress echo this morning and if negative, she will be discharged home (2) Palpitations: As above No tachycardia in the hospital after admission (3) HTN (hypertension): Remains controlled (4) Migraine: No acute headache (5) Generalized anxiety disorder: History of generalized anxiety disorder Has been occasional benzodiazepines Total Time Total Time Spent Total Time Spent (In Minutes): 35 minutes Total Time Includes: Examination of the Patient, Discharge Planning, Medication Reconciliation and Communication With Other Providers Discharge Plan Discharge Items Patient Disposition: Home - Self-Care Reason For Visit: PALPITATIONS Discharge Diagnosis: Chest pain-no ACS and negative stress echo, anxiety disorder Condition on Discharge: Good Activity: Resume your previous activity Non-emergency contact: Primary Care Provider Call non-emergency contact if: you have any medication questions and your symptoms worsen Follow-up/Referrals: Jean-Paul Hopper MD [Primary Care Provider] - 12/20/20 11:00 am (Your appointment is with Dr. Medardo Fang. Dr. Hopper is not available) Diet: Regular Addtl Attending Provider Instructions: No change in new medication Pending Studies at Discharge: No Stand-Alone Forms: [facility], Smoking Cessation Medications and DC Order Prescriptions: Continued meloxicam 15 mg tablet 15 mg PO QAM RF: 0 chlorthalidone 25 mg tablet 12.5 mg PO QAM RF: 0 amitriptyline 25 mg tablet 25 mg PO HS RF: 0 lisinopril 40 mg tablet 20 mg PO BID RF: 0 escitalopram oxalate 10 mg tablet 20 mg PO HS RF: 0 sumatriptan succinate 6 mg/0.5 mL cartridge 6 mg SUBCUT UD PRN (Reason: Migraine Headache) RF: 0 hydrocodone-acetaminophen 7.5-300 mg tablet 1 tab PO Q6 MDD 2 tabs a day PRN (Reason: mild pain/headache) RF: 0 lorazepam 1 mg tablet 1 mg PO HS PRN (Reason: Sleep) RF: 0 Discharge Orders: Discharge Order (Routine); Ordered 12/13/20 Ordered By: Samira Bryson Admission Data Admit Date/Time: 12/12/20 21:27 Attending Provider: Samira Bryson Admit Provider: Juanjose Nelson Primary Care Provider: Jean-Paul Hopper Other Providers: Juanjose Nelson ; Dimitri Perea ; Shailesh Mullins ; Jorge Duenas ; Serafin De Souza ; Prosper Blevins ; Marlo Avila ; Cristy Montez ; Kristen Quigley ; Sharon Bee ; Rene Figueredo Other Interventions: Discharge Summary Assessment (RN) Last Done: 12/13/20 15:15
== END 2020-12-13 15:32 | disposition home or self-care (01) ==
LOC: ED 16:07 → 2E 21:27 → INTOOBSV 21:27 → 2E 22:18